=== PATIENT | female | born 2000 | race Caucasian/White ===

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

== ENCOUNTER 2023-05-30 14:13 | Outpatient (REF) | payer MEDICAID, SELFPAY ==
--- NOTE | 2023-05-30 13:30 | PAPFT_PTH ---
PATIENT: Ino Moore LOC: [facility] U#:[id number] AGE/SX: 22/F ROOM: RE05/30/[address]: Malou Padron : 2000 BED: DIS: 05/30/2023 SPEC #: [id number] RECD: 05/31/23 13:00 STATUS: RO REMaggie #: [id number] ZARA: 05/30/23 13:[address]: Malou Padron DEPT: [facility] Cytology RECD BY: Yulisa Brown ENTERED: 05/31/23 13:00 SP TYPE: PAPFT OT DR: Unknown,Unknown Tissues: 1 - CX/ENDOCX FOR PAP SMEARS Procedures: PAP THIN PREP/[facility] Screening Comments: [id number] (CHLAMYDIA/GC)
--- OUTSIDE RECORDS SUMMARY | 2023-05-30 14:16 | XMS_ITS | Continuity of Care Document ---
Author Name Unknown Organization [facility] Address Unknown Care Team Providers Care Warehouse Unloader Name Role Phone No PCP, No PCP Primary Care Physician Unavailab le Encounter Date(s): 02/21/23 - 02/21/23 [facility] [address] [place] [address] Encounter Diagnosis Frequent nocturnal awakening(Discharge Diagnosis) - 02/21/23 Discharge Disposition: Home or Self Care Attending Physician: Thomas Banuelos PA-C Admitting Physician: Thomas Banuelos PA-C Allergies, Adverse Reactions, Alerts No Known Allergies Medications Ambien 10 mg oral tablet 10 mg = 1 tab(s), Oral, 0 Refill(s) Start Date: 02/21/23 Status: Ordered lamoTRIgine Oral, 0 Refill(s) Start Date: 02/21/23 Status: Ordered traZODone Oral, 0 Refill(s) Start Date: 02/21/23 Status: Ordered Vyvanse qAM, 0 Refill(s) Start Date: 02/21/23 Status: Ordered Wellbutrin SR Oral, BID, 0 Refill(s) Start Date: 02/21/23 Status: Ordered Problem List Condition Confirmation Course Effective Dates Status Health St atus Informant Bipolar 1 disorder Confirmed Active Vital Signs Most recent to oldest [Reference Range]: 1 Peripheral Pulse Rate [60-100 bpm] 65 bp m (02/21/23 1:53 PM) Periph Pulse Normalcy Regular (02/21/23 1:53 PM) Respiratory Rate [14-20 br/min] 16 br/mi n (02/21/23 1:53 PM) Blood Pressure 100/77mmHg (02/21/23 1:53 PM) Mean Arterial Presure, Manual 85 mmHg (02/21/23 1:53 PM) Social History Social History Type Response Smoking Status Current some day smo ker; Type: Cigarettes entered on: 02/21/23 Sex Female Patient Care team information Care Team Personnel Name: No PCP No PCP, Member Role: Primary Care Physician
--- OUTSIDE RECORDS SUMMARY | 2023-05-30 14:16 | XMS_ITS | Continuity of Care Document ---
Author Name Unknown Organization [facility] [employer] [facility] Address [address], [facility] [address] [place] [address] Phone [phone] Care Team Providers Care Plain Clothes Police Officer Name Role Phone No [facility] PCP, [facility] Care Team Information Arch Support Technician U navailable Social History Type Date Description Comments Sex Unknown Tobacco Use Reviewed: 10/12/22 Never Used Smokeless T obacco Tobacco Use Start: Unknown End: Unknown Patient is a former smoker Smoking Status Reviewed: 10/12/22 Patient is a former smoker Allergies and adverse reactions Description No Known Drug Allergies Medications Active Medications SIG Qnty Indications Order ing Provider Date Albuterol SulfatePowder 2-4 inhalations with chamber every 4 hours as needed (at least twice a day with cold viruses) Unknown Atimwn2bo Tablets 1 tablet at bedtime Un known Wellbutrin [id number] Tablets ER 12HR 1 daily Unknown [id number] Tablets 1/2 twice daily Un known [id number] Capsules 1 (one) capsule daily Unknown Vital Signs Date Vital Result Comment 10/12/2022 11:06am Weight 136.00 lb Weight 61.690 kg Height 62 inches 5'2 Patient Rep orted Height in cm's 157.5 cm BP Systolic 110 mmHg Cuff- Regular, L eft Arm BP Diastolic 76 mmHg Cuff- Regular, L eft Arm Heart Rate 76 /min Electronically A cq Body Temperature 98.8 F Tympanic Body Temperature 37.1 C Respiratory Rate 16 /min O2 % BldC Oximetry 98 % On Room Air BMI (Body Mass Index) 24.9 kg/m2 03/07/2022 1:10pm Weight 137.00 lb Weight 62.143 kg Height 62 inches 5'2 Patient Rep orted Height in cm's 157.5 cm BP Systolic 112 mmHg Left Arm BP Diastolic 96 mmHg Left Arm Heart Rate 105 /min Electronically A cq Body Temperature 97.8 F Tympanic Body Temperature 36.6 C Respiratory Rate 16 /min Unlabored O2 % BldC Oximetry 98 % On Room Air BMI (Body Mass Index) 25.1 kg/m2 Medical Devices Description No Information Available Encounters Description No Information Available Plan of Treatment 10/12/2022 - SHIRA Carranza* R11.2 Nausea with vomiting, unspecified* Comments:* Follow-up as scheduled with your primary care provider. * R10.84 Generalized abdominal pain * R53.1 Weakness * R19.7 Diarrhea, unspecified Functional Status Description No Information Available Mental Status Description No Information Available Referrals Description No Information Available
[2023-06-01 13:48] LABS: Chlamydia Result Negative (Negative); GC Result Negative (Negative)
== END 2023-05-30 14:14 | disposition home or self-care (01) ==
LOC: NCHCN 14:13
PROVIDERS: Visit Provider Family Medicine
DX: Z12.4 Encounter for screening for malignant neoplasm of cervix (principal); Z11.3 Encounter for screening for infections with a predominantly sexual mode of transmission
CPT/HCPCS: 87491; 87591; 88142